=== PATIENT | male | born 1960 | race Caucasian/White ===

== ENCOUNTER 2024-04-17 13:28 | Emergency (ER) | payer MEDICARE ==
[2024-04-17] MEDS: Lidocaine 1% 10 ML MDV INJECT ONE (14:33)
[2024-04-17] MEDS: Bacitracin Oint 1 GM U/D Packet TOP ONE (15:34)
[2024-04-17] MEDS: Bacitracin Oint 28.35 GM Tube TOP ONE (15:39)
== END 2024-04-17 15:45 | disposition home or self-care (01) ==
LOC: JP.ED 13:28
DX: S61.411A Laceration without foreign body of right hand, initial encounter (principal); E78.00 Pure hypercholesterolemia, unspecified; Z79.899 Other long term (current) drug therapy; W26.8XXA Contact with other sharp object(s), not elsewhere classified, initial encounter
CPT/HCPCS: 12002; 99282; A9270-GY